=== PATIENT | female | born 1990 | race Caucasian/White ===

== ENCOUNTER 2019-11-10 13:36 | Emergency (ER) | payer MEDICAID, SELFPAY ==
[~2019-11-10] VITALS: Ht 160 cm; Wt 66.0 kg
[2019-11-10 13:42] VITALS: BP 115/88
[2019-11-10 14:19] LABS: RAPID INFLUENZA A POSITIVE (Negative); RAPID INFLUENZA B Negative (Negative)
--- NOTE | 2019-11-10 14:30 | NUR ---
PT HERE WITH C/O COUGH X 3 DAYS.
--- NOTE | 2019-11-10 15:08 | NUR ---
Patient/Caregiver given discharge instructions and they have confirmed that they understand the instructions. Patient ambulatory with steady gait.
== END 2019-11-10 15:25 | disposition home or self-care (01) ==
LOC: ED 15:10
DX: J10.1 Influenza due to other identified influenza virus with other respiratory manifestations (principal); F17.210 Nicotine dependence, cigarettes, uncomplicated
CPT/HCPCS: 71046; 87400; 99284